=== PATIENT | male | born 1950 | race Caucasian/White ===

== ENCOUNTER 2022-09-09 21:39 | Emergency (ER) | payer MEDICARE ==
[~2022-09-09] VITALS: Ht 177.8 cm; Wt 92.0 kg
[2022-09-10] MEDS ORDERED: HYDROCODONE/ACETAMINOPHEN 5/325MG TABLET PO ONE (01:00)
[2022-09-10] MEDS ORDERED: IBUP-2029 MT (03:01)
[2022-09-10 03:18] VITALS: BP 134/74
== END 2022-09-10 03:31 | disposition home or self-care (01) ==
LOC: ER 22:07
DX: M54.2 Cervicalgia (principal); R07.89 Other chest pain; R51.9 Headache, unspecified; V49.49XA Driver injured in collision with other motor vehicles in traffic accident, initial encounter; Y93.89 Activity, other specified; Y92.89 Other specified places as the place of occurrence of the external cause; Y99.8 Other external cause status; F32.9 Major depressive disorder, single episode, unspecified; I10 Essential (primary) hypertension
CPT/HCPCS: 71045; 99285